=== PATIENT | male | born 1995 | race Caucasian/White ===

== ENCOUNTER 2016-07-07 18:26 | Emergency (ER) | payer SELFPAY ==
[~2016-07-07] VITALS: Ht 175.3 cm; Wt 68.4 kg
[~2016-07-07 18:26] MED LIST: ALBU8.5H3 INH; DOXY-168 PO; ERGO2000 PO; PRED10TA PO; ZIPR40CA2 PO
[2016-07-07 18:27] VITALS: BP 146/78
[2016-07-07] MEDS ORDERED: ALBUTEROL/IPRATROPIUM 2.5MG/0.5MG, 3 ML NPPB ONE (19:00)
[2016-07-07] MEDS ORDERED: ALBUTEROL/IPRATROPIUM 2.5MG/0.5MG, 3 ML ONE (19:07)
== END 2016-07-07 19:32 | disposition home or self-care (01) ==
LOC: ED 19:25
DX: J20.9 Acute bronchitis, unspecified (principal); J45.909 Unspecified asthma, uncomplicated
CPT/HCPCS: 71020; 93005; 94640; 99284; J7620

== ENCOUNTER 2016-08-14 15:22 | Emergency (ER) | payer SELFPAY ==
[~2016-08-14] VITALS: Ht 175.3 cm; Wt 62.3 kg
[2016-08-14 15:28] VITALS: BP 123/84
[2016-08-14] MEDS ORDERED: LIDOCAINE 1%, 20ML SQ ONE (16:00)
== END 2016-08-14 17:16 | disposition home or self-care (01) ==
LOC: ED 17:10
DX: L03.011 Cellulitis of right finger (principal)
CPT/HCPCS: 10060